=== PATIENT | female | born 1990 | race Caucasian/White ===

== ENCOUNTER 2016-08-26 13:25 | Emergency (ER) | payer MEDICAID ==
--- NOTE | 2016-08-26 15:40 | EDPHY ---
H & P Stated Complaint: head pain s/p hit head snowboarding 5 days ago, no loc, no neck pain Time Seen by Provider: 08/26/16 14:52 HPI/ROS: CHIEF COMPLAINT: headache HISTORY OF PRESENT ILLNESS: 25-year-old female presents to the emergency department complaining of a continued headache with light sensitivity, intermittent nausea and dizziness. Patient fell snowboarding 5 days ago, she was wearing a helmet, she fell backwards and hit her head on the snow. She denies loss of consciousness though states she had ringing in her ears in her vision went dark for less than a minute. Patient states she felt pretty out of it and dizzy for about 15 minutes after the accident. Patient denies neck pain. No vomiting. For the last 5 days she has had a continued headache with light sensitivity and intermittent nausea was dizziness. No abdominal pain, no confusion, no blurred vision. Patient denies previous concussions. REVIEW OF SYSTEMS: A comprehensive 10 point review of systems is otherwise negative aside from elements mentioned in the history of present illness. Source: Patient Exam Limitations: No limitations - Personal History LMP (Females 10-55): 15-21 Days Ago Current Tetanus/Diphtheria Vaccine: Unsure Current Tetanus Diphtheria and Acellular Pertussis (TDAP): Unsure - Medical/Surgical History Hx Asthma: No Hx Chronic Respiratory Disease: No Hx Diabetes: No Hx Cardiac Disease: No Hx Renal Disease: No Hx Cirrhosis: No Hx Alcoholism: No Hx HIV/AIDS: No Hx Splenectomy or Spleen Trauma: No Other PMH: denies - Family History Significant Family History: No pertinent family hx - Social History Smoking Status: Never smoked - Physical Exam Exam: Physical Exam Gen: Alert and Oriented, NAD HEENT: PERRL, moist mucous membranes NECK: no C-spine tenderness CV: regular rate and regular rhythm PULM: CTAB, no wheezes NEURO: Neurologically grossly intact, normal cerebellar exam, normal gait EXTREMITIES: Moves all extremities SKIN: no rash or break in skin on exposed skin PSYCH: answers questions appropriately. Constitutional: Initial Vital Signs Temperature (C) 36.5 C 08/26/16 13:38 Heart Rate 76 08/26/16 13:38 Respiratory Rate 16 08/26/16 13:38 Blood Pressure 110/76 08/26/16 13:38 O2 Sat (%) 97 08/26/16 13:38 O2 Delivery Mode Room Air Allergies/Adverse Reactions: No Known Allergies Allergy (Unverified 08/26/16 13:37) Home Medications: Medication Instructions Recorded NK [No Known Home Meds] 08/26/16 Medical Decision Making - Diagnostics Imaging: -Head CT independently reviewed by me No acute abnormality ED Course/Re-evaluation: This patient presents after a head injury 5 days ago with continued headache, light sensitivity and nausea. Neurologic exam normal. CT brain obtained and is negative, urine is negative. CHI precautions given. Patient has been given Dr. Ernestine Kruger contact info to follow up with for concussion treatment. She is given return precautions for worsening symptoms. Differential Diagnosis: The differential diagnosis for the patient's head injury included but was not limited to concussion, skull fracture, intra-parenchymal contusion, subarachnoid , subdural and epidural hematoma. Departure - Departure Disposition: Home, Routine, Self-Care Clinical Impression: Post concussive syndrome Condition: Good Instructions: Concussion (ED), Post Concussion Syndrome (ED) Additional Instructions: Take 650 mg of Tylenol every 8 hours with food alternating with 600 mg of ibuprofen every 8 hours with food as needed for headaches. Follow up with Dr. Ernestine Lockhart who is the concussion specialist. Call to schedule this appointment on Sunday to be seen at 1st available. Return to the emergency department for worsening symptoms. Referrals: Ernestine Lockhart MD [Medical Doctor] - As per Instructions (Concussion specialist)
--- NOTE | 2016-08-26 16:50 | CT ---
CT of the Head (Without Contrast) Indication: Dizziness, nausea for 5 days status post closed head injury.. Technique: Standard noncontrast head CT protocol utilizing 5 mm thick collimated slices and field of view 23 cm. Dose reduction techniques were utilized. Findings: No intracranial hemorrhage, mass, ischemia, swelling, or extraaxial fluid collection. Th e ventricles are normal caliber and midline. The ordonez-white matter has normal attenuation. The bones are unremarkable. The paranasal sinuses are clear. Impression: Normal. Findings were discussed with Trace Sims.
[2016-08-26 17:26] VITALS: BP 121/85; PULSE 84; RESP 15; TEMP 98.8; O2SAT 96
== END 2016-08-26 17:27 | disposition home or self-care (01) ==
DX: S09.90XA Unspecified injury of head, initial encounter (principal); F07.81 Postconcussional syndrome; V00.311A Fall from snowboard, initial encounter; Y99.8 Other external cause status; Y93.23 Activity, snow (alpine) (downhill) skiing, snowboarding, sledding, tobogganing and snow tubing